=== PATIENT | female | born 1955 | race Hispanic/Latino ===

== ENCOUNTER 2020-01-09 15:30 | Emergency (ER) | payer OTHER ==
--- OUTSIDE RECORDS SUMMARY | 2020-01-09 15:32 | XMS REPORT | Summary of Care ---
:1955 Author Organization [facility] Address [address] [place] [id number] Care Team Providers Name Role Phone Cuate Botello Primary Care Provider Reason for Visit Reason Comments VAGINAL PAIN Encounter Details Date Type Department Care Team Description 01/07/2020 Telemedicine Visit [facility] Ciera Radha, Postm enopausal atrophic vaginitis (Primary Dx); Women's PA-C Vaginal pain Healthcare[address], [address] [place] [id number] [phone] Allergies No Known Allergiesdocumented as of this encounter (statuses as of 01/07/2020) Medications Medication Sig Dispensed Refills Start Date End Date Status methotrexate 2.5 mg Take by mouth 1 01/18/2019 Active tablet alendronate 70 mg tablet 0 01/27/2019 Active HUMIRA,CF, PEN 40 mg/0.4 0 03/06/2019 Active mL injection levothyroxine 100 mcg Take 100 mcg by 0 Active tablet mouth. pravastatin 10 mg tablet Take 10 mg by 0 Active mouth at bedtime. foLIC acid 1 mg tablet Take 1 mg by 0 Active mouth daily. ibuprofen/famotidine Take by mouth. 0 Active (DUEXIS ORAL) estradiol 0.01 % (0.1 Insert 2 g PV qd 1 Tube 0 01/07/2020 Active mg/gram) vaginal x 2 wks, then 2 creamIndications: x / week. Postmenopausal atrophic vaginitis documented as of this encounter (statuses as of 01/07/2020) Active Problems No known active problemsdocumented as of this encounter (statuses as of 01/07/2020) Social History Tobacco Use Types Packs/Day Years Used Date Never Smoker Smokeless Tobacco: Never Used Alcohol Use Drinks/Week oz/Week Comments Yes Occasionally Sex Assigned at Date Recorded Not on file Job Start Date Occupation Industry Not on file Not on file Not on file Travel History Travel Start Travel End No recent travel history available. documented as of this encounter Last Filed Vital Signs Not on filedocumented in this encounter Progress Notes Radha Vang PA-C - 01/07/2020 4:00 PM CDT TELEHEALTH NOTE -conducted OV via telehealth due to covid-19 crisis- Verbal consent obtained from Patient: Annette Orozco for telehealth services provided below. Communication with patient was conducted via Telephone due to patient unable to obtain video call option. Location of Patient: Home Location of Provider: Office Date of Service: 01/07/2020 Chief Complaint: vaginal pain, vaginal irritation after douching with vinegar. Patient reports originally had vaginal itching and dryness. Patient tried otc monistat and it worsened the symptoms. Patient denies any abnormal/pelvic pain, discharge, dysuria, hematuria, abnormal bleeding. Patient reports is not sexually active with her due to him having prostate issues. Last WWE was in 02/[address] Gómez and it was wnl. HPI: Annette Orozco is a 64 year old female with Past Medical History: Diagnosis Date Anemia Autoimmune disorder Breast disorder Breast reduction Hypercholesteremia Osteoporosis Thalassemia Thyroid disease MEDICATIONS: No outpatient medications have been marked as taking for the 01/07/20 encounter (Telemedicine Visit) with Radha Vang PA-C. ROS She has no complaints and reports is doing well. Patient denies any abnormal/pelvic pain, discharge, dysuria, hematuria, abnormal bleeding. Denies fever, chills, body aches, sob, chest pain, dyspnea. ROS otherwise negative. +vaginal dryness +vaginal pain TELEHEALTH EXAM Alert. Happy. Stable. Answering and asking questions appropriately. ASSESSMENT/ PLAN Annette Orozco is a 64 year old female with PMH as above presenting with: 1. Vaginal pain 2. Post menopausal tx. Patient advised to stop douching. Patient washing instructions given.pt to apply coconut oil. Rx estrace cream discussed. Follow-up in 4 wks for FOLLOW-UP New medication management. Plan of care, desired health behaviors, goals, Ddx, and any prescribed medications were discussed with the patient. I spent 25 minute(s) conducting this Telehealth encounter with the patient over the telephone due to patient unable to botain video call option. Education resources and self-management t ools were provided is the AVS which is accessible through MiNeeds. Patient/guardian/family verbalized understanding and agrees to the plan of care. Barriers to care: None. Ability to manage care: Good. If applicable, the [employer] database was accessed to review any controlled substance prescription claims data. If the patient is taking prescribed medications, the [employer] prescription claims data in myDocket was reviewed to assess patient compliance with the medication treatment plan. COVID-19 precautions given including frequent handwashing, social distancing, cleaning and disinfecting, indications for testing, etc. After visit summary (AVS ) documentation will be available through MiNeeds for this encounter. Radha Vang PA-C 01/07/2020 3:28 PM documented in this encounter Plan of Treatment Date Type Specialty Care Team Description 03/17/2020 Office Visit Obstetrics & Gynecology Radha Vang PA-C [address] [place] [address] [phone] Health Maintenance Due Date Last Done Comments HEPATITIS C (HCV) SCREEN 1955 DTaP,Tdap,and Td Vaccines (1 1968 - Tdap) Breast Cancer Screening 1997 (MAMMOGRAM) COLONOSCOPY 2007 Zoster Recombinant Vaccine 2007 (SHINGRIX) (1 of 2) INFLUENZA VACCINE (#1) 2019 PAP SMEAR 03/15/2022 03/15/2019, 11/07/2003 PNEUMOCOCCAL 0-64 YEARS Aged Out No longe r eligible based COMBINED SERIES on patient's age to complete this to [facility] documented as of this encounter Results Not on filedocumented in this encounter Visit Diagnoses Diagnosis Postmenopausal atrophic vaginitis - Prim mary Vaginal pain Unspecified symptom associated with fema le genital organs documented in this encounter Insurance Payer Benefit Plan / Subscriber ID Effective Phone Address T teeteee Group Dates [facility] [id number] 2018-E[place]ilson [phone] [address] [employer] [facility] [phone] [place] [address] documented as of this encounter
--- OUTSIDE RECORDS SUMMARY | 2020-01-09 15:32 | XMS REPORT ---
:1955 Author Organization [facility] t Address [address] [place] [address] Dr. [address]y [address] [place] [address] Care Team Providers Name Role Phone Unavailable Unavailable Unavailable Problems This patient has no known problems. Allergies, Adverse Reactions, Alerts This patient has no known allergies or adverse reactions. Medications This patient has no known medications.
--- OUTSIDE RECORDS SUMMARY | 2020-01-09 15:32 | XMS REPORT | Summary of Care ---
:1955 Author Organization [facility] Address [address] [place] [address] Care Team Providers Name Role Phone Cuate Botello Primary Care Provider Reason for Visit Reason Comments Assessment Encounter Details Date Type Department Care Team Description 01/09/2020 Telephone [facility] Jayda Vang PA-C Assessment Healthcare- [address], [facility] 20 [address] [place] [address] [place] [address] [phone] Allergies No Known Allergiesdocumented as of this encounter (statuses as of 01/09/2020) Medications Medication Sig Dispensed Refills Start Date [...] as of this encounter (statuses as of 01/09/2020) Active Problems No known active problemsdocumented as of this encounter (statuses as of 01/09/2020) Social History Tobacco Use Types Packs/Day Years [...] Signs Not on filedocumented in this encounter Plan of Treatment Date Type Specialty Care Team Description 02/04/2020 Telemedicine Visit Obstetrics & Gynecology Malorie Vang PA-C [address] [address] 03/17/2020 Office Visit Obstetrics & Gynecology Radha Vang PA-C [address] [facility] [address] [place] [address] Health Maintenance Due Date Last Done Comments HEPATITIS C (HCV) SCREEN 1955 DTaP,Tdap,and Td Vaccines (1 1968 - Tdap) Breast Cancer Screening 1997 (MAMMOGRAM) COLONOSCOPY 2007 Zoster Recombinant Vaccine 2007 (SHINGRIX) (1 of 2) INFLUENZA VACCINE (#1) 2019 PAP SMEAR 03/15/2022 03/15/2019, 11/07/2003 PNEUMOCOCCAL 0-64 YEARS Aged Out No longe r eligible based COMBINED SERIES on patient's age to complete this to pic documented as of this encounter Results Not on filedocumented in this encounter Insurance Payer Benefit Plan / Subscriber ID Effective Phone Address T ype Group Dates [facility] [id number] 2018-[place]ilson [phone] [address] [email or web address] [id number] [place] [address] documented as of this encounter
[2020-01-09 16:10] LABS: Absolute Lymphocytes (CBC) 2.9 K/uL (0.7-4.9); Hematocrit 37.8 % (36.0-45.0); Lymphocytes % 34.2 % (15.3-44.8); RBC Red Blood Cell Count 5.22 M/uL (3.86-4.86)
[2020-01-09 16:32] LABS: ALT/SGPT 26 U/L (12-78); AST/SGOT 18 U/L (15-37); Albumin 3.8 g/dL (3.4-5.0); Alkaline Phosphatase 55 U/L (45-117); BUN Blood Urea Nitrogen 13 mg/dL (7-18); Bicarbonate 28 mmol/L (21-32); Bilirubin Direct < 0.1 mg/dL (0-0.2); Bilirubin Total 0.2 mg/dL (0.2-1.0); Glucose Level 102 mg/dL (74-106); Lipase 163 U/L (73-393); Potassium 4.2 mmol/L (3.5-5.1); Protein, Total 8.2 g/dL (6.4-8.2); Sodium Level 141 mmol/L (136-145)
[2020-01-09 16:33] LABS: Urine Bacteria NONE SEEN /HPF (<20); Urine RBC NONE SEEN /HPF (NONE SEEN)
[2020-01-09 16:34] LABS: Urine Culture Reflex Order REFLEXED
[2020-01-09 16:34] LABS: Urine Blood NEGATIVE (NEG); Urine Glucose NEGATIVE (NEG); Urine Protein NEGATIVE (NEG); Urine Specific Gravity <1.005 (1.005-1.030); Urine pH 5.5 (5.0-7.0)
--- NOTE | 2020-01-09 17:16 | RAD REPORT ---
EXAM DESCRIPTION: CT - Abdomen Pelvis W Contrast - 01/09/2020 4:52 pm CLINICAL HISTORY: Abdominal pain COMPARISON: none. TECHNIQUE: Computed axial tomography of the abdomen pelvis was obtained. 100 cc Isovue-300 was admin istered intravenously. Oral contrast was not requested which limits evaluation of bowel. All CT scans are performed using dose optimization technique as appropriate and may include automated exposure control or mA/KV adjustment according to patient size. FINDINGS: Cholecystectomy. The liver, spleen, pancreas, and adrenals appear unremarkable. Mild cortical thinning involves the ki dneys. Small right renal cysts. There is no evidence of diverticulitis. Normal appendix 7 centimeter right ovarian cyst. 2.6 centimeter left ovarian cyst. No significant free fluid. Endomet rial stripe is prominent. IMPRESSION: A 7 centimeter right ovarian cyst. Prominence of the endometrium Endovaginal sonogram recommended . If the patient does not have symptoms of an acute abdomen this can be done on a nonemergent basis
[2020-01-09] MEDS ORDERED: NA CHLORIDE 0.9% 500 ML ONE (18:45)
--- NOTE | 2020-01-09 19:41 | RAD REPORT ---
EXAM DESCRIPTION: US - Transvaginal Study Probe - 01/09/2020 7:22 pm CLINICAL HISTORY: Abdominal pain COMPARISON: January 09, 2020 cat scan FINDINGS: The uterus measures 7 x 3 x 5cm. A fibroid is not seen. 18 millimeter echogenic structure is present within the endometrium. 7.3 centimeter right ovarian cyst. Blood flow seen within the right ovary. 2.6 centimeter left ovarian cyst The right and left adnexal are unremarkable No significant free fluid is seen. IMPRESSION: 18 millimeter echogenic structure within the endometrium may represent a polyp or neopla sm 7.3 centimeter right ovarian cyst
--- NOTE | 2020-01-09 20:00 | EDPHYS ---
Physician Documentation [facility] Name: Annette Orozco Age: 64 yrs Sex: Female : 1955 Arrival Date: 01/09/2020 Time: 15:32 Bed 20 Private MD: ED Physician Jez Jennings HPI: 01/08 15:46 This 64 yrs old Female presents to ER via Ambulatory with complaints of cp Abdominal Pain, Fever. 15:46 The patient presents with abdominal pain in the lower abdomen. Onset: The cp symptoms/episode began/occurred 5 day(s) ago. The symptoms radiate to low back. Associated signs and symptoms: Pertinent positives: fever, Pertinent negatives: nausea and vomiting, blood in stools, chest pain, constipation, diarrhea, dysuria, vaginal discharge. Historical: - Allergies: 15:38 No Known Allergies; sv - PMHx: 15:38 RA; Thyroid problem; High Cholesterol; sv - PSHx: 15:38 Hernia repair; Cholecystectomy; Breast reduction; sv - Immunization history:: Flu vaccine is not up to date. - Social history:: Smoking status: Patient denies any tobacco usage or history of. ROS: 15:50 Constitutional: Negative for body aches, chills, fever, poor PO intake. cp 15:50 Eyes: Negative for injury, pain, redness, and discharge. cp Exam: 16:00 Constitutional: The patient appears in no acute distress, alert, awake, comfortable, cp non-toxic, well developed, well nourished. 16:00 Head/Face: Normocephalic, atraumatic. cp 16:00 Eyes: Periorbital structures: appear normal, Conjunctiva: normal, no exudate, no injection, Sclera: no appreciated abnormality, Lids and lashes: appear normal, bilaterally. 16:00 ENT: External ear(s): are unremarkable, Nose: is normal, Mouth: is normal, Posterior pharynx: Airway: no evidence of obstruction, patent. 16:00 Chest/axilla: Inspection: normal. 16:00 Cardiovascular: Rate: normal, Rhythm: regular. 16:00 Respiratory: the patient does not display signs of respiratory distress, Respirations: normal, no use of accessory muscles, no retractions, labored breathing, is not present, Breath sounds: are clear throughout, no decreased breath sounds, no stridor, no wheezing. 16:00 Abdomen/GI: Inspection: abdomen appears normal, Bowel sounds: active, all quadrants, Palpation: soft, in all quadrants, mild abdominal tenderness, in the suprapubic area, rebound tenderness, is not appreciated, involuntary guarding, is not appreciated. 16:00 Back: CVA tenderness, is absent. Vital Signs: 15:38 BP 138 / 83; Pulse 84; Resp 16; Temp 98.3(TE); Pulse Ox 100% ; Weight 69.4 kg; Height 5 sv ft. 0 in. (152.40 cm); 16:26 BP 125 / 75; Pulse 73; Resp 16 S; Pulse Ox 99% on R/A; ca1 17:33 BP 112 / 65; Pulse 71; Resp 17 S; Pulse Ox 100% on R/A; ca1 18:48 BP 139 / 74; Pulse 70; Resp 17 S; Pulse Ox 100% on R/A; ca1 19:44 BP 121 / 62; Pulse 74; Resp 18; Pulse Ox 100% on R/A; mg2 15:38 Body Mass Index 29.88 (69.40 kg, 152.40 cm) sv MDM: 15:42 Patient medically screened. cp 19:58 Data reviewed: vital signs, nurses notes, lab test result(s), radiologic studies, CT cp scan, ultrasound. 19:58 Differential diagnosis: appendicitis, diverticulitis, non-specific abd pain, cp Pyelonephritis, Ureterolithiasis, urinary tract infection, ovarian cyst. Counseling: I had a detailed discussion with the patient and/or guardian regarding: the historical points, exam findings, and any diagnostic results supporting the discharge/admit diagnosis, lab results, radiology results, the need for outpatient follow up, for definitive care, an OB/Gyne specialist, to return to the emergency department if symptoms worsen or persist or if there are any questions or concerns that arise at home. Response to treatment: the patient's symptoms have markedly improved after treatment, and as a result, I will discharge patient. Special discussion: Based on the patient's Hx, exam, and Dx evaluation, there is no indication for emergent surgery or inpatient Tx. It is understood by the patient/guardian that if the Sx's persist or worsen they need to return immediately for re-evaluation. 01/08 15:48 Order name: Basic Metabolic Panel; Complete Time: 16:33 cp 01/08 16:33 Interpretation: Normal except: CL 108; GFR 47. cp 01/08 15:48 Order name: CBC with Diff cp 01/08 16:34 Interpretation: Normal except: RBC 5.22; MCV 72.3; MCH 23.2; RDW 22.7. cp 01/08 15:48 Order name: Creatinine for Radiology; Complete Time: 16:33 cp 01/08 15:48 Order name: Hepatic Function; Complete Time: 16:52 cp 01/08 17:11 Interpretation: Normal except: GLOB 4.4; A/G 0.9. cp 01/08 15:48 Order name: Lipase; Complete Time: 16:52 cp 01/08 15:48 Order name: Urine Microscopic Only; Complete Time: 16:52 cp 01/08 19:56 Interpretation: Normal except: UWBC 5-10. cp 01/08 15:48 Order name: IV Saline Lock; Complete Time: 16:05 cp 01/08 15:48 Order name: Labs collected and sent; Complete Time: 16:05 cp 01/08 15:48 Order name: Urine Dipstick-Ancillary (obtain specimen); Complete Time: 16:05 cp 01/08 15:48 Order name: CT Abd/Pelvis - IV Contrast Only; Complete Time: 17:29 cp 01/08 16:10 Order name: Urine Dipstick--Ancillary (enter results); Complete Time: 16:52 bd 01/08 17:11 Interpretation: Normal except: UESTR TRACE. cp 01/08 16:35 Order name: Urine Culture EDWI 01/08 17:30 Order name: US Transvaginal Study (Probe); Complete Time: 19:55 cp Administered Medications: 16:05 Drug: NS 0.9% 500 ml Route: IV; Rate: bolus; Site: right antecubital; ca1 17:00 Follow up: Response: No adverse reaction; IV Status: Completed infusion ca1 17:00 Follow up: Response: No adverse reaction; IV Status: Completed infusion ca1 Disposition: 01/09 07:36 Co-signature as Attending Physician, Jez Jennings MD I agree with the assessment and kdr plan of care. Disposition: 01/09/20 19:59 Discharged to Home. Impression: Other and unspecified ovarian cysts. - Condition is Stable. - Discharge Instructions: Ovarian Cyst. - Prescriptions for Tramadol 50 mg Oral Tablet - take 1 tablet by ORAL route every 8 hours as needed; 20 tablet. - Medication Reconciliation Form, Thank You Letter, Antibiotic Education, Prescription Opioid Use form. - Follow up: Private Physician; When: 2 - 3 days; Reason: Recheck today's complaints. - Problem is new. - Symptoms have improved. Signatures: Dispatcher [employer] EDChar Delgadillo RN RN sv Jez Jennings MD MD kdr Dav Lew PA PA cp Hector Camp RN RN mg2 Michelle Hill RN RN ca1 Corrections: (The following items were deleted from the chart) 01/08 20:15 19:59 01/09/2020 19:59 Discharged to Home. Impression: Other and unspecified ovarian mg2 cysts. Condition is Stable. Forms are Medication Reconciliation Form, Thank You Letter, Antibiotic Education, Prescription Opioid Use. Follow up: Private Physician; When: 2 - 3 days; Reason: Recheck today's complaints. Problem is new. Symptoms have improved. cp
--- NOTE | 2020-01-09 20:00 | ER ---
Nurse's Notes [facility] Name: Annette Orozco Age: 64 yrs Sex: Female : 1955 Arrival Date: 01/09/2020 Time: 15:32 Bed 20 Private MD: Diagnosis: Other and unspecified ovarian cysts Presentation: 01/08 15:34 Method Of Arrival: Ambulatory sv 15:35 Chief complaint: Patient states: lower abd pain, fever Tmax 99.5 since Tuesday. Called sv last week to her PCP for vaginal irritation and was given a prescription but has not improved. Coronavirus screen: Proceed with normal triage. Patient denies a cough. Patient denies shortness of breath or difficulty breathing. Patient denies measured and/or subjective temperature greater than 100.4F prior to today's visit. Patient denies travel on a cruise ship or to a country the [facility] currently lists as an affected area. Patient denies contact with known and/or suspected case of COVID-19. Ebola Screen: No symptoms or risks identified at this time. Risk Assessment: Do you want to hurt yourself or someone else? Patient reports no desire to harm self or others. Onset of symptoms was January 04, 2020. 15:35 Acuity: JANINE 3 sv 15:38 Initial Sepsis Screen: Does the patient meet any 2 criteria? No. Patient's initial sv sepsis screen is negative. Does the patient have a suspected source of infection? No. Patient's initial sepsis screen is negative. Triage Assessment: 15:40 General: Appears in no apparent distress. comfortable, Behavior is calm, cooperative, sv appropriate for age. Pain: Complains of pain in suprapubic area, right lower quadrant and left lower quadrant. Neuro: Level of Consciousness is awake, alert, obeys commands, Gait is steady. Respiratory: Respiratory effort is even, unlabored. GI: Reports lower abdominal pain. Historical: - Allergies: 15:38 No Known Allergies; sv - PMHx: 15:38 RA; Thyroid problem; High Cholesterol; sv - PSHx: 15:38 Hernia repair; Cholecystectomy; Breast reduction; sv - Immunization history:: Flu vaccine is not up to date. - Social history:: Smoking status: Patient denies any tobacco usage or history of. Screenin:05 Abuse screen: Denies threats or abuse. Denies injuries from another. Nutritional ca1 screening: No deficits noted. Tuberculosis screening: No symptoms or risk factors identified. Fall Risk IV access (20 points). Assessment: 16:05 General: Appears in no apparent distress. comfortable, Behavior is calm, cooperative, ca1 appropriate for age. Pain: Complains of pain in abdomen and left lower quadrant and right lower quadrant Pain radiates to low back area Pain currently is 5 out of 10 on a pain scale. Pain began 5-6 days ago Is intermittent. Neuro: Level of Consciousness is awake, alert, obeys commands, Oriented to person, place, time, situation, Appropriate for age. Cardiovascular: Heart tones S1 S2 present Capillary refill < 3 seconds Patient's skin is warm and dry. Respiratory: Airway is patent Respiratory effort is even, unlabored, Respiratory pattern is regular, symmetrical, Breath sounds are clear bilaterally. GI: Abdomen is round non-distended, Bowel sounds present X 4 quads. Abd is soft and non tender X 4 quads. : No signs and/or symptoms were reported regarding the genitourinary system. Urine is clear. EENT: No signs and/or symptoms were reported regarding the EENT system. Derm: Skin is intact, is healthy with good turgor, Skin is pink, warm \T\ dry. Musculoskeletal: Circulation, motion, and sensation intact. Capillary refill < 3 seconds. 16:40 Reassessment: Patient appears in no apparent distress at this time. Patient is alert, ca1 oriented x 3, equal unlabored respirations, skin warm/dry/pink. PT to CT. 17:33 Reassessment: Patient appears in no apparent distress at this time. Patient and/or ca1 family updated on plan of care and expected duration. Pain level reassessed. Patient is alert, oriented x 3, equal unlabored respirations, skin warm/dry/pink. 18:46 Reassessment: Patient appears in no apparent distress at this time. Patient and/or ca1 family updated on plan of care and expected duration. Pain level reassessed. Patient is alert, oriented x 3, equal unlabored respirations, skin warm/dry/pink. Pending US. 19:02 Reassessment: ultrasound at bedside ongoing,. mg2 Vital Signs: 15:38 BP 138 / 83; Pulse 84; Resp 16; Temp 98.3(TE); Pulse Ox 100% ; Weight 69.4 kg; Height 5 sv ft. 0 in. (152.40 cm); 16:26 BP 125 / 75; Pulse 73; Resp 16 S; Pulse Ox 99% on R/A; ca1 17:33 BP 112 / 65; Pulse 71; Resp 17 S; Pulse Ox 100% on R/A; ca1 18:48 BP 139 / 74; Pulse 70; Resp 17 S; Pulse Ox 100% on R/A; ca1 19:44 BP 121 / 62; Pulse 74; Resp 18; Pulse Ox 100% on R/A; mg2 15:38 Body Mass Index 29.88 (69.40 kg, 152.40 cm) sv ED Course: 15:32 Patient arrived in ED. as 15:33 Dav Lew PA is PHCP. cp 15:33 Jez Jennings MD is Attending Physician. cp 15:34 Arm band placed on. sv 15:37 Triage completed. sv 15:41 Michelle Hill, RN is Primary Nurse. ca1 15:51 Radiology exam delayed due to lab results not completed at this time. (BUN/Creatinine). vm2 16:02 No provider procedures requiring assistance completed. Initial lab(s) drawn, by sd, ca1 sent to lab. Inserted saline lock: 20 gauge in right antecubital area, using aseptic technique. Blood collected. 16:05 Patient has correct armband on for positive identification. Placed in gown. Bed in low ca1 position. Call light in reach. Side rails up X 1. Pulse ox on. NIBP on. Warm blanket given. 16:52 CT Abd/Pelvis - IV Contrast Only In Process Unspecified. EDMS 19:22 US Transvaginal Study (Probe) In Process Unspecified. EDMS 20:14 IV discontinued, intact, bleeding controlled, No redness/swelling at site. Pressure mg2 dressing applied. Administered Medications: 16:05 Drug: NS 0.9% 500 ml Route: IV; Rate: bolus; Site: right antecubital; ca1 17:00 Follow up: Response: No adverse reaction; IV Status: Completed infusion ca1 17:00 Follow up: Response: No adverse reaction; IV Status: Completed infusion ca1 Outcome: 19:59 Discharge ordered by . cp 20:14 Discharged to home ambulatory. mg2 20:14 Condition: stable 20:14 Discharge instructions given to patient, Instructed on discharge instructions, follow up and referral plans. medication usage, Demonstrated understanding of instructions, follow-up care, medications, Prescriptions given X 1. 20:15 Patient left the ED. mg2 Signatures: Dispatcher [employer] Char Louie RN RN sv Martinez, Amelia as Page, Corey, PA PA cp McGuire, [facility] Hector Camp RN RN mg2 Michelle Hill RN RN ca1 Corrections: (The following items were deleted from the chart) 15:40 15:38 Pulse 84bpm; Resp 16bpm; Pulse Ox 100%; Temp 98.3F Temporal; 69.4 kg; Height 5 sv ft. 0 in.; BMI: 29.8; sv
[2020-01-09 20:22] VITALS: TEMP 98.3
[2020-01-09 20:25] VITALS: O2SAT 100
[2020-01-09 20:27] VITALS: BP 121/62
[2020-01-09 21:31] LABS: Platelet Estimate ADEQ; Urine White Blood Cell Casts OK
[2020-01-09 21:33] LABS: Anisocytosis 1+; Blood Morphology Comment NOTED (NOT SEEN); Hypochromasia 1+; Poikilocytosis SLIGHT; Polychromasia SLIGHT
== END 2020-01-09 20:15 | disposition home or self-care (01) ==
LOC: ER 15:30
DX: N83.299 Other ovarian cyst, unspecified side (principal); E07.9 Disorder of thyroid, unspecified
CPT/HCPCS: 87088; 85025; 87086; 80048; 36415; 80076; 87077; 87186; 83690; 74177; 76830; 96360; 99284; Q9967; J7040; 81003; 81015